=== PATIENT | male | born 2000 | race Caucasian/White ===

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

== ENCOUNTER 2022-03-16 14:21 | Emergency (ER) | payer OTHER, SELFPAY ==
[2022-03-16 14:24] VITALS: BP 142/59; PULSE 78; RESP 16; TEMP 36.8; O2SAT 100
--- NOTE | 2022-03-16 14:27 | ED.URI ---
HPI - URI/Sore Throat General Chief Complaint: Upper Respiratory Infection Stated Complaint: cold flu Time Seen by Provider: 03/16/22 14:28 Source: patient and RN notes reviewed History of Present Illness HPI Narrative: patient is a 21-year-old male who presents to urgent care with complaints of sore throat, cough, headache, chills. Patient states it started yesterday and he has not taken anything [id number] for his symptoms. Patient denies any fever, nausea, vomiting or exposure to illness. No other acute complaints. No acute distress noted. Patient aware of the plan of care. Some parts of this dictation were generated by voice recognition software and may contain typographical and/or grammatical inaccuracies. Related Data Allergies Allergy/AdvReac Type Severity Reaction Status Date / Time No Known Allergies Allergy Verified 03/16/22 14:32 Review of Systems Review of Systems: CONSTITUTIONAL: Denies fever, chills, or sweats. EYES: Denies visual changes, redness, or discharge. ENT: reports a sore throat postnasal drainage CARDIOVASCULAR: Denies chest pain, palpitations, or edema. RESPIRATORY: reports of cough without dyspnea GASTROINTESTINAL: Denies abdominal pain, nausea, vomiting, or diarrhea. GENITOURINARY: Denies dysuria or hematuria. SKIN: Denies rash or itching. MUSCULOSKELETAL: Denies back pain, joint pain, or myalgia. NEUROLOGIC: reports of headache All other systems reviewed are negative, except as documented in HPI. PMFSH Comments At the time of my signature, I reviewed and agree with the nursing past medical, surgical, social, and family history. There is no relevant family history pertinent to the patient complaint. Exam Narrative: GENERAL: This is a well-nourished, well-developed patient, in no apparent distress. HEAD: normocephalic, atraumatic. EYES: PERRL. Sclera clear/white. Vision is grossly intact. EARS: External ears normal, auditory canals clear and without drainage, TMs normal without perforation. Hearing grossly intact. NOSE: External nose normal with no obvious nasal discharge, nares without redness, no rhinorrhea. THROAT: Mucous membranes moist, mild bilateral tonsillar edema with moderate postnasal drainage NECK: Neck supple, mild bilateral submandibular lymphadenopathy, masses or thyromegaly. CARDIOVASCULAR: Regular rate and rhythm without murmurs, gallops, or rubs. RESPIRATORY: Clear to auscultation. Breath sounds equal bilaterally. No wheezes, rales, or rhonchi. SKIN: warm, intact with no suspicious lesions or rash, good texture and turgor. NEURO: awake, alert, and oriented to person, place and time. There were no obvious focal neurologic abnormalities. EXTREMITIES: No clubbing, cyanosis, or edema. Course Course Level of Care: Express Care Visit Vital Signs Vital signs: Vital Signs Temperature 98.3 F 03/16/22 14:24 Pulse Rate 78 03/16/22 14:24 Respiratory Rate 16 03/16/22 14:24 Blood Pressure 142/59 H 03/16/22 14:24 Pulse Oximetry 100 03/16/22 14:24 Oxygen Delivery Room Air 03/16/22 14:24 Temperature 98.3 F 03/16/22 14:24 Pulse Rate 78 03/16/22 14:24 Respiratory Rate 16 03/16/22 14:24 Blood Pressure 142/59 H 03/16/22 14:24 Pulse Oximetry 100 03/16/22 14:24 Oxygen Delivery Room Air 03/16/22 14:24 reviewed- Patient is informed that they may have pre-hypertension or hypertension based on a blood pressure reading in the department. I recommend the patient call the primary care provider listed on their discharge instructions or a physician of their choice this week to arrange follow-up for further evaluation of possible pre-hypertension or hypertension. MDM - URI/Sore Throat MDM Narrative Medical decision making narrative: due to the lack of resources, we were unable to complete a rapid strep test. We will send the culture and call within 2-3 days to let you know with the culture results state and antibiotics are necessary. Ad
== END 2022-03-16 14:42 | disposition home or self-care (01) ==
PROVIDERS: Emergency Provider Nurse Practitioner Family
DX: J02.9 Acute pharyngitis, unspecified (principal)
CPT/HCPCS: 87081; 99213; G0463

== ENCOUNTER 2024-02-08 11:24 | Emergency (ER) | payer BC, MEDICAID, SELFPAY ==
[2024-02-08 11:35] VITALS: BP 137/67; PULSE 99; RESP 16; TEMP 36.1; O2SAT 100
--- NOTE | 2024-02-08 11:58 | ED.ABDPAIN ---
HPI - Abdominal Pain General Chief Complaint: Abdominal Pain Stated Complaint: vomiting,diarrhea,sharp abd pain History of Present Illness HPI narrative: Patient presents with a history of reflux. Patient states he ate [employer] h[employer] late last night and went to bed which aggravated his GERD. Patient denies any nausea no vomiting no abdominal pain at present. No diarrhea no constipation. 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 Related Data Allergies Allergy/AdvReac Type Severity Reaction Status Date / Time No Known Allergies Allergy Verified 02/08/24 11:53 Review of Systems Review of Systems: CONSTITUTIONAL: Denies fever, chills, or sweats. EYES: Denies visual changes, redness, or discharge. ENT: Denies rhinorrhea, congestion, sore throat, or otalgia. CARDIOVASCULAR: Denies chest pain, palpitations, or edema. RESPIRATORY: Denies cough or dyspnea. GASTROINTESTINAL: Denies abdominal pain, nausea, vomiting, or diarrhea. GENITOURINARY: Denies dysuria or hematuria. SKIN: Denies rash or itching. MUSCULOSKELETAL: Denies back pain, joint pain, or myalgia. NEUROLOGIC: Denies headache, numbness, or weakness. PSYCHIATRIC: Denies anxiety or depression. PMFSH Comments At time of signature, agree with nursing past medical, surgical, social and family history. There is no relevant family history pertinent to the presenting complaint Exam Narrative: GENERAL: Well-appearing, well-nourished, and in no acute distress. HEAD: Normocephalic, atraumatic. EYES: PERRLA and EOMI. ENT: Nares clear, no rhinorrhea or epistaxis. Mucous membranes moist. NECK: Supple. CHEST: Clear to auscultation. No respiratory distress. HEART: Regular rate and rhythm. No murmur heard. Normal peripheral pulses. ABDOMEN: Soft, nontender, nondistended, normal active bowel sounds. EXTREMITIES: Normal range of motion. No edema. SKIN: Warm, dry, no rash. NEURO: No focal deficits. Alert and oriented x3. Julia Coma Scale Eye Opening: Spontaneous 4 Julia Coma Scale Motor: Obeys Commands 6 Julia Coma Scale Verbal: Oriented 5 Julia Coma Scale Total 15 Course Course Level of Care: Express Care Visit Vital Signs Vital signs: Vital Signs Temperature 36.1 C L 02/08/24 11:35 Pulse Rate 99 02/08/24 11:35 Respiratory Rate 16 02/08/24 11:35 Blood Pressure 137/67 02/08/24 11:35 Pulse Oximetry 100 02/08/24 11:35 Oxygen Delivery Room Air 02/08/24 11:35 Temperature 36.1 C L 02/08/24 11:35 Pulse Rate 99 02/08/24 11:35 Respiratory Rate 16 02/08/24 11:35 Blood Pressure 137/67 02/08/24 11:35 Pulse Oximetry 100 02/08/24 11:35 Oxygen Delivery Room Air 02/08/24 11:35 Please TRAY schedule a followup visit with your personal physician for further evaluation and treatment. Including recheck and discussion of your blood pressure. If your symptoms persist, change or worsen significantly before you can contact your personal physician then please, without delay, go to the emergency department for further evaluation Discharge Plan Discharge Clinical Impression: Gastroenteritis, Chronic GERD Patient Disposition: Home, Self-Care Condition: Stable Additional Instructions: Nausea discharge Clear liquids for the next 8-10 hours, then advance to a bland diet as tolerated A bland diet can consist of--BRAT diet which is bananas, rice, applesauce, and toast Avoid fried, greasy, fatty, fried foods Avoid caffeine, nicotine, and alcohol Return to your regular diet in the next 3-4 days Medication as directed for nausea and vomiting -If you have any worsening of symptoms or any other concerns please go to the ED immediately. Prescriptions: New omeprazole 40 mg capsule,delayed release(DR/EC) 40 mg PO DAILY Qty: 30 0RF Follow-up/Referrals: PHYSICIAN,FIELD ATTENDANT [Primary Care Provider] - Stand Alone Forms: Work/School Release IP
== END 2024-02-08 12:02 | disposition home or self-care (01) ==
PROVIDERS: Emergency Provider Nurse Practitioner Family
DX: K52.9 Noninfective gastroenteritis and colitis, unspecified (principal); K21.9 Gastro-esophageal reflux disease without esophagitis
CPT/HCPCS: 99213; G0463